=== PATIENT | male | born 1970 | race Two or more races ===

== ENCOUNTER 2016-08-10 13:08 | Emergency (ER) | payer OTHER ==
[2016-08-10] MEDS ORDERED: IOPAMIDOL 370 (76%) 100 ML VIAL IV ONE (13:09)
[2016-08-10] MEDS ORDERED: SODIUM CHLORIDE 0.9% 1,000 ML ONE ×2 (14:32→16:37)
[2016-08-10] MEDS ORDERED: FAMOTIDINE 10 MG/ML 2ML VIAL ONE (14:33)
[2016-08-10 15:04] LABS: ABSOLUTE NEUTROPHIL COUNT 20.9 K/mm3 (1.8-7.7); BASO # 0.1 K/mm3 (0.0-0.2); BASO % 0.4 % (0.2-1.0); EOS # 0.2 (0.0-0.5); EOS % 0.7 % (0.9-2.9); HEMATOCRIT 51.7 % (32.0-52.0); HEMOGLOBIN 18.1 gm/l (14.0-18.0); IMM NEUT # 0.1 K/mm3 (0-0.2); IMM NEUT% 0.5 % (0-1); LYMPH # 1.8 (1.0-4.8); MEAN CELL VOLUME 86.2 fl (80.0-94.0); MEAN CORPUSCULAR HEMOGLOBIN 30.2 pg (27.0-31.0); MEAN PLATELET VOLUME 10.4 fl (7.4-10.4); MONO # 2.1 (0.0-0.8); MONO % 8.3 % (4-12); NEUT % 83.1 % (43-75); PLATELET COUNT 342 K/mm3 (130-400)
[2016-08-10 15:18] LABS: ALB/GLOB RATIO 1.1 (>1.0); CALCIUM 9.1 mg/dL (8.6-10.3)
--- NOTE | 2016-08-10 15:36 | CT ---
EXAMINATION: Contrast enhanced CT scan of the abdomen and pelvis. CLINICAL INDICATION: Abdominal pain COMPARISON: 09/02/2008 TECHNIQUE: Oral contrast: None Following uneventful administration of 100 mL of Isovue 370, intravenously axial images were acquired from just above the domes of the diaphragm to the iliac crest. A CT scan of the pelvis was also obtained from the iliac crest to the initial tuberosities. Stacked axial, sagittal, and coronal images were reviewed. Findings: Abdomen CT: (Contrast-enhanced): The lung bases are clear and are without mass or pleural effusion. Liver exhibits diminished attenuation compatible with fatty infiltration. There is a small punctate 4 mm cyst within the anterior segment of the right lobe of liver. This appears new in comparison to the prior study. No worrisome hepatic lesion is identified. The gallbladder is within normal limits. There is no evidence of biliary obstruction. The spleen size and attenuation are within normal limits. The pancreas is normal in size and contours. No inflammatory stranding is identified. The pancreatic duct is unremarkable. The adrenals are unremarkable. The kidneys are without mass or hydronephrosis. The right kidney exhibits a nonobstructive upper pole 5 mm calculus at the corticomedullary junction. The left kidney exhibits an interpolar 3 mm calculus also at the CM junction. The abdominal aorta unremarkable. There is no retroperitoneal adenopathy identified. The stomach is unremarkable. The visualized segments of small and large bowel are within normal limits. The osseous structures exhibit no displaced fracture. No lytic or blastic lesions are identified. Pelvic CT: (Contrast -enhanced): The distal ureters and bladder are unremarkable. The prostate is normal in size. No adenopathy is identified. The distal abdominal aorta and iliac vessels are within normal limits. There is diverticulosis of the colon without evidence of acute diverticulitis. No small bowel dilatation is identified. There is no inflammatory stranding or free fluid. The appendix is unremarkable. No displaced fractures are identified. There are no gross osteolytic or blastic lesions. The overlying soft tissues are unremarkable. IMPRESSION: 1. No evidence of acute inflammatory or obstructive process involving the abdomen and pelvis. 2. Fatty infiltration of the liver. 3. Bilateral nonobstructive nephrolithiasis. The findings were uploaded to the electronic medical record for review at approximately 3:36 PM 08/09/2016
[2016-08-10 15:42] LABS: BAND 8 % (0-10); BASOPHIL 0 % (0-1); EOSINOPHIL 0 % (1-3); LYMPHOCYTE 9 % (15-45); MONOCYTE 5 % (4-12); NEUTROPHILS 78 % (43-75); PLATELET ESTIMATE NORMAL (NORMAL); TOTAL CELLS COUNTED 100
[2016-08-10] MEDS ORDERED: ONDANSETRON 4 MG/2ML 2 ML VIAL ONE (15:47)
[2016-08-10] MEDS ORDERED: MORPHINE SULFATE 4 MG/ML SYRINGE ONE (15:48)
--- NOTE | 2016-08-10 15:59 | RAD ---
EXAMINATION:CHEST - 2 VIEWS CLINICAL INDICATION: Chest and abdominal pain. COMPARISON: 09/02/2008 FINDINGS: The cardiomediastinal silhouette is within normal limits. There is no adenopathy identified. There is no pleural effusion. The lungs are clear. The osseous structures are unremarkable for age. IMPRESSION: Negative PA and lateral views of the chest. No acute cardiopulmonary process is identified.
[2016-08-10 17:03] LABS: URINE BILIRUBIN NEGATIVE (NEGATIVE); URINE BLOOD TRACE (NEGATIVE); URINE GLUCOSE (UA) NEGATIVE (NEGATIVE); URINE LEUKOCYTE ESTERASE NEGATIVE (NEGATIVE); URINE NITRITE NEGATIVE (NEGATIVE); URINE PROTEIN TRACE (NEGATIVE); URINE UROBILINOGEN NORMAL (0-1 mg/dl)
[2016-08-10 17:05] LABS: URINE APPEARANCE CLEAR; URINE COLOR YELLOW
[2016-08-10 17:11] LABS: URINE BACTERIA RARE; URINE EPITHELIAL CELLS 0 /hpf; URINE WBC 0-1 /hpf
[2016-08-10] MEDS ORDERED: SUCRALFATE 1 G/10 ML DOSE ONE (17:12)
== END 2016-08-10 17:57 | disposition home or self-care (01) ==
LOC: ED 13:08
DX: K29.70 Gastritis, unspecified, without bleeding (principal); R11.10 Vomiting, unspecified; R19.7 Diarrhea, unspecified